=== PATIENT | female | born 1985 | race Caucasian/White ===

== ENCOUNTER 2018-08-27 10:02 | Emergency (ER) | payer SELFPAY ==
[2018-08-27] MEDS ORDERED: Acetaminophen 325 MG TAB ONE (12:53)
== END 2018-08-27 13:01 | disposition home or self-care (01) ==
LOC: ERS 10:02
DX: J06.9 Acute upper respiratory infection, unspecified (principal); E66.9 Obesity, unspecified; F32.9 Major depressive disorder, single episode, unspecified; F43.10 Post-traumatic stress disorder, unspecified; Z79.899 Other long term (current) drug therapy
CPT/HCPCS: 99283